=== PATIENT | female | born 1985 ===

== ENCOUNTER 2017-07-12 12:16 | Inpatient (IN) | payer OTHER ==
[~2017-07-12] VITALS: Ht 166.4 cm; Wt 76.2 kg
[~2017-07-12 12:16] MED LIST: ACET-1966 PO; PNV1COMB5
[2017-07-12 12:45] VITALS: BP 146/90; Ht 166.4 cm; Wt 76.2 kg
[2017-07-12] MEDS ORDERED: OXYTOCIN 30 UNIT/D5LR 500 ML 500 ML IV PRN (12:49)
[2017-07-12] MEDS ORDERED: LR(*) 1000 ML BAG 1,000 ML IV SCH (12:49)
[2017-07-12] MEDS ORDERED: FAMOTIDINE(*) 20MG/50ML PREMIX 50 ML IVPB PRN (12:49)
[2017-07-12] MEDS ORDERED: FLUSH 10 ML SYR IVP PRN (12:50)
[2017-07-12] MEDS ORDERED: LIDOCAINE/SOD BICARB 8.4% SYR SC PRN (12:50)
[2017-07-12] MEDS ORDERED: LIDOCAINE 1% LOCAL 300 MG/30ML INJ PRN (12:50)
[2017-07-12] MEDS ORDERED: METOCLOPRAMIDE 10 MG/2 ML SDV IVP PRN (12:50)
[2017-07-12] MEDS ORDERED: EPIDURAL KEYS XX PRN (12:55)
[2017-07-12] MEDS ORDERED: LIDO/EPI 2% MPF 1:200,000 20ML EPI PRN (12:55)
[2017-07-12] MEDS ORDERED: BUPIVACAINE 0.25% MPF INJ EPI PRN (12:55)
[2017-07-12] MEDS ORDERED: LIDOCAINE/PF 2% 200MG/10ML AMP 200 MG/10 ML AMPUL EPI PRN (12:55)
[2017-07-12] MEDS ORDERED: FENTANYL/ROPIVACAINE 100 ML BAG EPI PRN (12:55)
[2017-07-12] MEDS ORDERED: BUPIVACAINE 0.5% INJ 30ML VIAL EPI PRN (12:55)
[2017-07-12] MEDS ORDERED: fentaNYL CITR 100 MCG/2 ML AMP IT PRN (12:55)
[2017-07-12] MEDS: fentaNYL CITR 100 MCG/2 ML AMP IVP PRN ×2 (13:04→14:17)
[2017-07-12 13:11] LABS: PLATELET COUNT, AUTOMATED 248 K/uL (150-450)
--- NOTE | 2017-07-12 15:34 | History & Physical ---
History of Present Illness Age of Patient: 31 : 1 Para or TPAL: 0 EDC per LMP: Jul 17, 2017 EDC per U/S: Jul 31, 2017 Estimated Gestational Age: 37.2 Chief Complaint Contractions at term. History of Present Illness Admitted in active labor at 37+ weeks. No complications record is reviewed. Contractions started about 0300 hours, and became more intense at about 0500 hours. membranes ruptured at about 1415 hours. History Patient's Blood Type: O Positive Rubella Status: Immune Group B Strep Screen: Negative Obstetrical History: Primigravida. Past Medical History: Left wrist surgery 1998. Allergies: Coded Allergies: No Known Drug Allergies (Unverified , 07/12/17) Social History: , present and supportive. No use of alcohol, tobacco, or illicit drug. Med Rec Home Meds Reported Medications Acetaminophen (TYLENOL) 325 Mg Tablet, 325 MG PO, TAB 07/08/17 Pnv #116/Iron Fumarate/Fa/Dha (EXPECTA COMBO PACK) 1 Each Combo..pkg 07/08/17 Exam General Exam General Apperance: Other (alert, in pain from contractions and labor) Neuro: No Gross deficits Eyes: Normal Extraocular Movement & Vison ENT: Normal, Moist Mucous Membranes Neck: No Masses Cardiovascular: Regular Rate and Rhythm Respiratory: No Respiratory Distress, Clear to Auscultation Abdomen: Soft, Non-Tender, Non-Distended, Gravid - Non-Tender : No CVA Tenderness Musculoskeletal: No Weakness/Pain Extremities: No Cyanosis,Clubbing or Edema, Reflexes (2+/4 and symmetric) Integumentary: Skin Intact without Lesions or Rash Psychological: Alert & Oriented X3, Appropriate Mood & Affect Vaginal Discharge/Fluid?: Clear Fluid Cervical Dialation: 5 (initial exam per RN) Cervical Effacement (%): 90 Station: -1 Presentation: Vertex Fetus Heart Tones: 140 FHT Decelerations: Variable (mild) FHT Category: I Medical Decision Making Data Points Result Diagram: 07/12/17 1304 VTE Prophylasis: Adult Pharmacological Contraindicati: Pt at Low Risk for VTE Mechanical Contraindications: Pt at Low Risk for VTE Assessment and Plan Problems: (1) with 37 weeks completed gestation Assessment & Plan: In active labor, now complete and pushing. Anticipate normal vaginal delivery. Copies to: CRISPIN OHARA MD, MARK F MD Jul 12, 2017 15:33
[2017-07-12] MEDS ORDERED: HYDROCORTISONE 2.5% CR 30GM TB PR PRN (17:10)
[2017-07-12] MEDS ORDERED: ACETAMINOPHEN 325 MG TAB PO PRN (17:10)
[2017-07-12] MEDS ORDERED: LANOLIN OINT 7 GM TUBE TP PRN (17:10)
[2017-07-12] MEDS ORDERED: HYDROmorphone HCL 2 MG TAB PO PRN (17:10)
--- NOTE | 2017-07-12 17:54 | OB Delivery Note ---
Delivery Note Vaginal Delivery Type: Spont. Vaginal Delivery Delivery Date: Jul 12, 2017 Delivery Time: 16:03 Estimated Gestational Age(wks): 37 2/7 Length of Labor Stage I (hrs): 12.0 Length of Labor Stage II (hrs): 1.03 Labor Stage III (minutes): 34 Delivery Anesthesia: Local (1% lidocaine) Sex: Male Infant Weight (gms): 2664 (5# 14 oz) Apgars: 1 Minute (9), 5 Minute (9) Repair Needed: Laceration, Periurethral (right inner labial minoral), 2nd Degree (vaginal inside the introitus at 5 o'clock) Estimated Blood Loss: 500 (average EBL) Delivery Complications: Laceration, Retained Placenta, Nuchal Cord, Other (ROP position at delivery) Notes: Spontaneous controlled vaginal delivery in ROP position of a healthy male infant. Nuchal cord reduced before delivery of shoulders. Retained placenta, with fairly easy manual removal without anesthesia (patient tolerated procedure every well) of an normal intact placenta. There were 2 lower genital tract lacerations, one a 2nd degree 3 cm vaginal laceration at the introitus at 5 o' clock, repaired under local anesthesia with 1% Lidocaine with a continuous locked suture of 3-0 Chromic. The other laceration was a widely- R inner labial minoral (shanthi-urethral) laceration, also repaired under local anesthesia with a continuous suture of 4-0 Chromic. Privacy Specialist in Attendence: No Copies to: CRISPIN OHARA MD, MARK F MD Jul 12, 2017 17:40
[2017-07-12] MEDS: BENZOCAINE 20% 60 ML BTL TP PRN (18:14)
[2017-07-12] MEDS: GLYCERIN/WITCH HAZEL LEAF 1 PK TP PRN (18:15)
[2017-07-12] MEDS ORDERED: IBUPROFEN 800 MG TAB PO SCH (19:00)
[2017-07-12 19:09] VITALS: BP 144/96
[2017-07-12] MEDS: IBUPROFEN 800 MG TAB PO SCH (20:02)
[2017-07-12] MEDS: DOCUSATE CALCIUM 240 MG CAP PO SCH (20:30)
[2017-07-12 20:32] VITALS: BP 137/86
[2017-07-12] MEDS ORDERED: LIDOCAINE 1% LOCAL 300 MG/30ML 30 ML ONE (23:14)
[2017-07-12] MEDS ORDERED: LR(*) 1000 ML BAG 1,000 ML ONE (23:15)
[2017-07-12 23:25] VITALS: BP 135/68
[2017-07-13] MEDS ORDERED: IBUPROFEN 800 MG TAB PO SCH (02:00)
[2017-07-13 03:39] VITALS: BP 125/70
[2017-07-13] MEDS: IBUPROFEN 800 MG TAB PO SCH ×3 (03:47→20:08)
[2017-07-13] MEDS: MULTIVITAMINS (PRENATAL) TAB PO SCH (08:29)
[2017-07-13] MEDS: DOCUSATE CALCIUM 240 MG CAP PO SCH ×2 (08:29→21:00)
[2017-07-13 08:32] VITALS: BP 140/88
--- NOTE | 2017-07-13 09:54 | OB/GYN Progress Note ---
OB Subjective Progress Notes Subjective Feeling fairly well. Ambulating with mild-moderate perineal/labial edema and soreness, but voiding well. Moderate lochia, decreasing. Baby doing well, but not feeding well yet. OB Objective Physical Exam Vital Signs Recent BP's 120-140's/60-80's. Date Time Temp Pulse Resp B/P (MAP) Pulse Ox O2 Delivery O2 Flow Rate FiO2 07/13/17 09:20 Room Air 07/13/17 08:32 98.8 07/13/17 08:32 72 16 140/88 (105) 07/12/17 23:25 95 General Appearance: Alert/Awake/No Acute Distress Cardiovascular: Regular Rate and Rhythm Respiratory: No Respiratory Distress, Clear to Auscultation Abdomen: Bowel Sounds Present, Fundus Firm (at U), Non-Tender Extremities: No Cyanosis,Clubbing or Edema, No Tender Calves Psychological: Alert & Oriented X3, Appropriate Mood & Affect Result Diagram: 07/13/17 0606 Assessment and Plan Problems: (1) Encounter for care or examination of mother immediately after delivery Assessment & Plan: Doing well . Discharge home tomorrow. (2) with 37 weeks completed gestation Status: Resolved CRISPIN OHARA MD Jul 13, 2017 09:54
[2017-07-13 12:16] VITALS: BP 130/90
[2017-07-13 19:20] VITALS: BP 137/97
[2017-07-13 22:35] VITALS: BP 141/104
[2017-07-14 00:35] VITALS: BP 136/88
[2017-07-14] MEDS: IBUPROFEN 800 MG TAB PO SCH ×2 (03:58→12:11)
[2017-07-14 04:00] VITALS: BP 135/100
[2017-07-14 07:20] VITALS: BP 145/106
--- NOTE | 2017-07-14 08:13 | OB/GYN Progress Note ---
OB Subjective Progress Notes Subjective Feels fine, less pain and aching today. Wants to go home today. Ambulating and voiding well. Mild lochia. Denies epigastric pain and scotomata. Had a mild headache for an hour earlier, now resolved. Baby doing well, feeding much better. OB Objective Physical Exam Vital Signs Date Time Temp Pulse Resp B/P (MAP) Pulse Ox O2 Delivery O2 Flow Rate FiO2 07/14/17 07:20 97.6 82 24 145/106 (119) Room Air 07/12/17 23:25 95 BP's remain 130-140/80-100's. General Appearance: Alert/Awake/No Acute Distress Cardiovascular: Regular Rate and Rhythm Respiratory: No Respiratory Distress, Clear to Auscultation Abdomen: Bowel Sounds Present, Fundus Firm (U-1), Non-Tender Extremities: No Cyanosis,Clubbing or Edema, Reflexes (2-3+/4 and symmetric), No Tender Calves Psychological: Alert & Oriented X3, Appropriate Mood & Affect Result Diagram: 07/13/17 0606 Assessment and Plan Problems: (1) Encounter for care or examination of mother immediately after delivery Status: Acute Assessment & Plan: Doing well , although mild gestational hypertension . Ready for discharge. Will see back in office for BP check in 2-4 days. (2) with 37 weeks completed gestation Status: Resolved CRISPIN OHARA MD Jul 14, 2017 08:13
[2017-07-14] MEDS ORDERED: INFLUENZA VIRUS VAC 0.5 ML SYR IM ONLY ONE (09:00)
[2017-07-14] MEDS: DOCUSATE CALCIUM 240 MG CAP PO SCH (09:11)
[2017-07-14] MEDS: MULTIVITAMINS (PRENATAL) TAB PO SCH (09:11)
--- NOTE | 2017-07-14 09:24 | OB/GYN Discharge Summary ---
Discharge Summary Reason for Hosp/Final Diag: (1) Encounter for care or examination of mother immediately after delivery Status: Acute Hospital Course & Plan: After spontaneous vaginal delivery of a healthy male infant at 37 weeks, the patient had no complications. Her BP's remained elevated to the range of about 120-140/80-100's, without evidence of severe disease. She was discharged home less than 48 hours , in good condition. (2) with 37 weeks completed gestation Status: Resolved Lates Vital Signs Vital Signs Date Time Temp Pulse Resp B/P (MAP) Pulse Ox O2 Delivery O2 Flow Rate FiO2 07/14/17 07:20 97.6 82 24 145/106 (119) Room Air 07/12/17 23:25 95 Weight (Pounds): 168 Result Diagram: 07/13/17605 Condition: Improved Discharge: Home, Self [facility]pc Meds Reported Medications Acetaminophen (TYLENOL) 325 Mg Tablet, 325 MG PO, TAB 07/08/17 Pnv #116/Iron Fumarate/Fa/Dha (EXPECTA COMBO PACK) 1 Each Combo..pkg 07/08/17 Follow up in: 6 wks PP or PO, 1-2 days (for BP check) Discharge Diet: As Tolerates Discharge Activity: As Tolerates Special Instructions: Discussed precautions to call for persistent headache, scotomata, or epigastric pain. Copies to: CRISPIN OHARA MD, MARK F MD Jul 14, 2017 08:16
[2017-07-14] MEDS ORDERED: DOCU240C67 PO (09:27)
[2017-07-14] MEDS ORDERED: Benzocaine 60 ML TP (09:27)
[2017-07-14] MEDS ORDERED: Lanolin TP (09:27)
[2017-07-14] MEDS ORDERED: TUCKS TP (09:27)
[2017-07-14] MEDS ORDERED: IBUP800T37 PO (09:27)
[2017-07-14] MEDS: GLYCERIN/WITCH HAZEL LEAF 1 PK TP PRN (09:37)
[2017-07-14] MEDS: BENZOCAINE 20% 60 ML BTL TP PRN (09:37)
[2017-07-14 11:15] VITALS: BP 152/106
== END 2017-07-14 13:25 | disposition home or self-care (01) | DRG 767 ==
LOC: OB 12:16
PROVIDERS: ADMIT Obstetrics & Gynecology; ATTEND Obstetrics & Gynecology
PROC: 10E0XZZ Delivery of Products of Conception, External Approach (ICD-10-PCS; principal; 2017-07-12)
PROC: 10D17Z9 Manual Extraction of Products of Conception, Retained, Via Natural or Artificial Opening (ICD-10-PCS; 2017-07-12)
PROC: 0KQM0ZZ Repair Perineum Muscle, Open Approach (ICD-10-PCS; 2017-07-12)
DX: O69.81X0 Labor and delivery complicated by cord around neck, without compression, not applicable or unspecified (principal); O73.0 Retained placenta without hemorrhage; O70.1 Second degree perineal laceration during delivery; O13.5 Gestational [pregnancy-induced] hypertension without significant proteinuria, complicating the puerperium; Z3A.37 37 weeks gestation of pregnancy; Z37.0 Single live birth
CPT/HCPCS: 36415; 85025; 85027; 86850; 86900; 86901; J2001; J3010; J7120